=== PATIENT | female | born 1945 | race African-American/Black ===

== ENCOUNTER 2020-04-11 11:56 | Emergency (ER) | payer MEDICARE ==
[~2020-04-11] VITALS: Ht 160 cm; Wt 62.1 kg
--- OUTSIDE RECORDS SUMMARY | 2020-04-11 11:58 | XMS REPORT | Clinical Summary ---
Author Author [facility] Address Unknown Phone Unavailable Care Team Providers Care Project Archivist Name Role Phone Asked, No Pcp PCP Unavailable Allergies Comments Active Allergy Reactions Severity Noted Date Codeine 10/04/2018 Medications End Date Status Medication Sig Dispensed Refills Start Date Active isosorbide mononitrate Take 60 mg by 0 (IMDUR) 60 MG 24 hr mouth daily. tablet Active omeprazole (PriLOSEC) 40 Take 40 mg by 0 MG capsule mouth daily. Active metoprolol tartrate Take 50 mg by 0 (LOPRESSOR) 50 mg tablet mouth 2 (two) times a day. 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 Last Filed Vital Signs Not on file Plan of Treatment Health Maintenance Due Date Last Done Comments DIABETIC RETINAL EYE EXAM 1943 DIABETIC FOOT EXAM 1953 URINE MICROALBUMIN 1953 COLONOSCOPY SCREENING 1993 SHINGLES VACCINES (#1) 1993 65+ PNEUMOCOCCAL VACCINE 2008 (1 of 2 - PCV13) INFLUENZA VACCINE 07/01/2020 Implants Device Identifier Shelf Expiration Date Model / Serial / L ot Implanted Type Area Manufactur er [id number] / / Stent System 3.5 X 30mm Resolute Coronary N/A: N/A MEDTRONIC Pj Rx Coronary - [id number] Stents [place] - Implanted: 10/27/2018 at [facility] (Quantity not on file) RYHTYM MGMT [id number] / / Stent Coronary Syst Synergy (Mr) Coronary N/A: N/A BSC 3.50mm X 28mm - [id number] Stents INTERVENTI Implanted: 10/27/2018 at [facility] (Quantity not on file) CARDIOLOGY 06/02/2020 [id number] / / [id number] Stent Coronary Syst Synergy (Mr) Coronary N/A: N/A BSC 3.00mm X 16mm - [id number] Stents INTERVENTI Implanted: 10/27/2018 at [facility] (Quantity not on file) CARDIOLOGY 07/22/2021 [id number] / / [id number] Needle Yueh Centsis 19ga Str 5fr Surgical N/A: N/A COOK 7cm Cath Strl - [id number] Implants; INTERVENTI Implanted: 10/08/2018 at [facility] (Quantity not on file) Extenders; RADIOL OGY Surgical Wires 06/01/2021 [id number] / / [id number] Needle Yueh Centsis 19ga Str 5fr Surgical N/A: N/A COOK 7cm Cath Strl - [id number] Implants; INTERVENTI Implanted: 10/09/2018 at [facility] (Quantity not on file) Extenders; RADIOL OGY Surgical Wires 07/01/2021 [id number] / / [id number] Needle Yueh Centsis 19ga Str 5fr Surgical N/A: N/A COOK 7cm Cath Strl - [id number] Implants; INTERVENTI Implanted: 10/09/2018 at [facility] (Quantity not on file) Extenders; RADIOL OGY Surgical Wires Results Not on fileafter 04/11/2019 Insurance Type Payer Benefit Subscriber ID Effective Phone Address Plan / Dates Group HMO C[employer] CIGNA xxxxxxxxxxx 2018- HEALTHSPRI Present NG O MCR ADV Advance Directives For more information, please contact: [phone] 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
--- OUTSIDE RECORDS SUMMARY | 2020-04-11 11:58 | XMS REPORT ---
Author Author [facility] Organization [facility] Address Unknown Phone Unavailable Care Team Providers Care Displayer Name Role Phone Unavailable Unavailable Payers Payer Name Policy Type Policy Number Effective Date Expiration D ate Problems This patient has no known problems. Allergies, Adverse Reactions, Alerts Allergy Name Allergy Type Status Severity Reaction(s) Onset Date Inacti ve Date Treating Clinician Comments codeine DA Active U 2016-05-17 00:00:00 Medications This patient has no known medications. Encounters Start Date/Time End Date/Time Encounter Type Admission Type [facility] Care Department Encounter ID 2019-12-24 09:27:00 2019-12-24 09:27:00 Outpatient [facility] [id number] 2019-11-08 09:35:00 2019-11-08 09:35:00 Outpatient [facility] [id number] 2019-08-28 15:42:00 2019-08-28 15:42:00 Outpatient [facility] [id number] Results Test Description Test Time Test Comments Text Results Atomic Results Result Comments - XR CONT ENEMA W/WO GABY 2020-01-24 14:19:00 FA X: Juan Singleton MD [phone] [place]: B St: REG FAX: Brigitte Lawler [phone] Name: MYLENE ESPINAL [facility] : 1944 Age/S: 75/F [address] Unit #: [id number] Loc: [place] [address] Phys: Acct: [id number] Dis Date: Status: REG SD PHONE #: [phone] Exam Date: 01/24/2020 1400 FAX #: [phone] Reason: INCOMPLETE COLONOSCOPY EXAMS: CPT CODE: [id number] XR CONT ENEMA W/WO KUB 76850 HISTORY: Incomplete colonoscopy. COMPARISON: None available. Location: [facility]. Double contrast barium enema exam: Parachute Rigger view of the abdomen demonstrating no bowel obstruction. Bowel gas pattern is within normal limits. Following gadolinium contrast administration patient continued to evacuate the barium. After the fourth attempt the study was terminated. The colon is opacified to the level of the splenic flexure. Scattered diverticulosis. No obstructing lesions. IMPRESSION: Incomplete study as patient continued to evacuate the barium and the study was terminated after the fourth a ttempt. Scattered diverticulosis in the portions of the visualized colon to the level of the sigmoid colon. at 1419 Reported and signed by: Jonah Lara M.D. CC: Juan Kumar MD; Uriel Shaver MD Technologist: RT PRAVIN(Felix) Trnscrd Date/Time/By: 01/24/2020 (3131) : By: [email or web address] Orig Print D/T: S: 01/24/2020 (3801) PAGE 1 Signed Report BASIC METABOLIC PANEL 2020-01-24 13:23:00 SODIUM (test code = NA) 153 mmol/L 136-145 POTASSIUM (test code = K) 3.7 mmol/L 3.5-5.1 CHLORIDE (test code = CL) 121.0 mmol/L 98-107 CARBON DIOXIDE (test code = CO2) 25.0 mmol/L 21-32 ANION GAP (test code = GAP) 10.7 10-20 GLUCOSE (test code = GLU) 117 mg/dL 74-106 BLOOD UREA NITROGEN (test code = BUN) 23 mg/dL 7-18 GLOMERULAR FILTRATION RATE (test code = GFR) > 60 mL/min >=6 0 Estimated GFR by using Modified MDRD formula.Chronic kidney disease is defined as either kidney damageor GFR <60 mL/min/1.73 m2 for >3 months. CREATININE (test code = CREAT) 0.90 mg/dL 0.55-1.02 * *Note change in reference range due to change in reagent. BUN/CREATININE RATIO (test code = BUN/CREA) 25.6 10-2 0 CALCIUM (test code = CA) 8.5 mg/dL 8.5-10.1 BASIC METABOLIC [id number] 13:13:00* Test Item Value Reference Range Comments SODIUM (test code = NA) 153 mmol/L 136-145 POTASSIUM (test code = K) 3.7 mmol/L 3.5-5.1 CHLORIDE (test code = CL) 121.0 mmol/L 98-107 CARBON DIOXIDE (test code = CO2) mmol/L 21-32 ANION GAP (test code = GAP) 10-20 GLUCOSE (test code = GLU) mg/dL 74-106 BLOOD UREA NITROGEN (test code = BUN) mg/dL 7-18 GLOMERULAR FILTRATION RATE (test code = GFR) mL/min >=6 0 CREATININE (test code = CREAT) mg/dL 0.55-1.02 BUN/CREATININE RATIO (test code = BUN/CREA) 10-2 0 CALCIUM (test code = CA) mg/dL 8.5-10.1 BASIC METABOLIC [id number] 10:46:00* Test Item Value Reference Range Comments SODIUM (test code = NA) 155 mmol/L 136-145 POTASSIUM (test code = K) 3.9 mmol/L 3.5-5.1 CHLORIDE (test code = CL) 122.0 mmol/L 98-107 CARBON DIOXIDE (test code = CO2) 27.0 mmol/L 21-32 ANION GAP (test code = GAP) 9.9 10-20 GLUCOSE (test code = GLU) 160 mg/dL 74-106 BLOOD UREA NITROGEN (test code = BUN) 24 mg/dL 7-18 GLOMERULAR FILTRATION RATE (test code = GFR) 58 mL/min >=6 0 Estimated GFR by using Modified MDRD formula.Chronic kidney disease is defined as either kidney damageor GFR <60 mL/min/1.73 m2 for >3 months. CREATININE (test code = CREAT) 1.10 mg/dL 0.55-1.02 * *Note change in reference range due to change in reagent. BUN/CREATININE RATIO (test code = BUN/CREA) 21.8 10-2 0 CALCIUM (test code = CA) 9.0 mg/dL 8.5-10.1 [id number] 09:35:00* Test Item Value Reference Range Comments GLUBED (test code = GLUBED) 150 mg/dL 74-106 Perf ormed by certified pocket grinder operator at [facility] BASIC METABOLIC [id number] 08:53:00* Test Item Value Reference Range Comments SODIUM (test code = NA) 153 mmol/L 136-145 POTASSIUM (test code = K) 4.0 mmol/L 3.5-5.1 CHLORIDE (test code = CL) 120.0 mmol/L 98-107 CARBON DIOXIDE (test code = CO2) 27.0 mmol/L 21-32 ANION GAP (test code = GAP) 10.0 10-20 GLUCOSE (test code = GLU) 188 mg/dL 74-106 BLOOD UREA NITROGEN (test code = BUN) 25 mg/dL 7-18 GLOMERULAR FILTRATION RATE (test code = GFR) 53 mL/min >=6 0 Estimated GFR by using Modified MDRD formula.Chronic kidney disease is defined as either kidney damageor GFR <60 mL/min/1.73 m2 for >3 months. CREATININE (test code = CREAT) 1.20 mg/dL 0.55-1.02 * *Note change in reference range due to change in reagent. BUN/CREATININE RATIO (test code = BUN/CREA) 20.8 10-2 0 CALCIUM (test code = CA) 8.9 mg/dL 8.5-10.1 BASIC METABOLIC [id number] 08:23:00* Test Item Value Reference Range Comments SODIUM (test code = NA) 153 mmol/L 136-145 POTASSIUM (test code = K) 4.0 mmol/L 3.5-5.1 CHLORIDE (test code = CL) 120.0 mmol/L 98-107 CARBON DIOXIDE (test code = CO2) mmol/L 21-32 ANION GAP (test code = GAP) 10-20 GLUCOSE (test code = GLU) mg/dL 74-106 BLOOD UREA NITROGEN (test code = BUN) mg/dL 7-18 GLOMERULAR FILTRATION RATE (test code = GFR) mL/min >=6 0 CREATININE (test code = CREAT) mg/dL 0.55-1.02 BUN/CREATININE RATIO (test code = BUN/CREA) 10-2 0 CALCIUM (test code = CA) mg/dL 8.5-10.1 CBC W/AUTO [id number] 07:51:00* Test Item Value Reference Range Comments WHITE BLOOD CELL (test code = WBC) 5.1 K/mm3 4.5-12.5 RED BLOOD CELL (test code = RBC) 3.63 mill/mm3 3.7-5.2 HEMOGLOBIN (test code = HGB) 10.7 gram/dL 11.5-15.5 HEMATOCRIT (test code = HCT) 34.8 % 36.0-46.0 MEAN CELL VOLUME (test code = MCV) 95.9 fL 80-98 MEAN CELL HGB (test code = MCH) 29.5 picogram 27.0-33.0 MEAN CELL HGB CONCETRATION (test code = MCHC) 30.7 gram/dL 33 .0-36.0 RED CELL DISTRIBUTION WIDTH (test code = RDW) 14.1 % 11 .6-16.2 RED CELL DISTRIBUTION WIDTH SD (test code = RDW-SD) 49.8 fL 37.0-51.0 PLATELET COUNT (test code = PLT) 198 K/mm3 150-450 MEAN PLATELET VOLUME (test code = MPV) 12.0 fL 6.7-11.0 NEUTROPHIL % (test code = NT%) 71.9 % 39.0-69.0 IMMATURE GRANULOCYTE % (test code = IG%) 0.4 % 0.0-5.0 LYMPHOCYTE % (test code = LY%) 17.3 % 25.0-55.0 MONOCYTE % (test code = MO%) 9.6 % 0.0-10.0 EOSINOPHIL % (test code = EO%) 0.6 % 0.0-5.0 BASOPHIL % (test code = BA%) 0.2 % 0.0-1.0 NUCLEATED RBC % (test code = NRBC%) 0.0 % 0-0 NEUTROPHIL # (test code = NT#) 3.67 K/mm3 1.8-7.7 IMMATURE GRANULOCYTE # (test code = IG#) 0.02 x10 3/uL 0-0.03 LYMPHOCYTE # (test code = LY#) 0.88 K/mm3 1.0-5.0 MONOCYTE # (test code = MO#) 0.49 K/mm3 0-0.8 EOSINOPHIL # (test code = EO#) 0.03 K/mm3 0.0-0.5 BASOPHIL # (test code = BA#) 0.01 K/mm3 0.0-0.2 NUCLEATED RBC # (test code = NRBC#) 0.00 K/mm3 0.0-0.1 MANUAL DIFF REQUIRED (test code = MDIFF) NO BASIC METABOLIC [id number] 09:43:00* Test Item Value Reference Range Comments SODIUM (test code = NA) 147 mmol/L 136-145 POTASSIUM (test code = K) 3.5 mmol/L 3.5-5.1 CHLORIDE (test code = CL) 113.0 mmol/L 98-107 CARBON DIOXIDE (test code = CO2) 28.0 mmol/L 21-32 ANION GAP (test code = GAP) 9.5 10-20 GLUCOSE (test code = GLU) 98 mg/dL 74-106 BLOOD UREA NITROGEN (test code = BUN) 23 mg/dL 7-18 GLOMERULAR FILTRATION RATE (test code = GFR) 59 mL/min >=6 0 Estimated GFR by using Modified MDRD formula.Chronic kidney disease is defined as either kidney damageor GFR <60 mL/min/1.73 m2 for >3 months. CREATININE (test code = CREAT) 1.10 mg/dL 0.55-1.02 * *Note change in reference range due to change in reagent. BUN/CREATININE RATIO (test code = BUN/CREA) 21.5 10-2 0 CALCIUM (test code = CA) 8.6 mg/dL 8.5-10.1 [id number] 09:32:00* Test Item Value Reference Range Comments GLUBED (test code = GLUBED) 83 mg/dL 74-106 Perf ormed by certified pocket grinder operator at [facility] BASIC METABOLIC [id number] 09:28:00* Test Item Value Reference Range Comments SODIUM (test code = NA) 147 mmol/L 136-145 POTASSIUM (test code = K) 3.5 mmol/L 3.5-5.1 CHLORIDE (test code = CL) 113.0 mmol/L 98-107 CARBON DIOXIDE (test code = CO2) mmol/L 21-32 ANION GAP (test code = GAP) 10-20 GLUCOSE (test code = GLU) mg/dL 74-106 BLOOD UREA NITROGEN (test code = BUN) mg/dL 7-18 GLOMERULAR FILTRATION RATE (test code = GFR) mL/min >=6 0 CREATININE (test code = CREAT) mg/dL 0.55-1.02 BUN/CREATININE RATIO (test code = BUN/CREA) 10-2 0 CALCIUM (test code = CA) mg/dL 8.5-10.1 CBC W/AUTO [id number] 08:44:00* Test Item Value Reference Range Comments WHITE BLOOD CELL (test code = WBC) 4.8 K/mm3 4.5-12.5 RED BLOOD CELL (test code = RBC) 3.29 mill/mm3 3.7-5.2 HEMOGLOBIN (test code = HGB) 9.7 gram/dL 11.5-15.5 HEMATOCRIT (test code = HCT) 30.6 % 36.0-46.0 MEAN CELL VOLUME (test code = MCV) 93.0 fL 80-98 MEAN CELL HGB (test code = MCH) 29.5 picogram 27.0-33.0 MEAN CELL HGB CONCETRATION (test code = MCHC) 31.7 gram/dL 33 .0-36.0 RED CELL DISTRIBUTION WIDTH (test code = RDW) 13.5 % 11 .6-16.2 RED CELL DISTRIBUTION WIDTH SD (test code = RDW-SD) 46.8 fL 37.0-51.0 PLATELET COUNT (test code = PLT) 171 K/mm3 150-450 MEAN PLATELET VOLUME (test code = MPV) 12.3 fL 6.7-11.0 NEUTROPHIL % (test code = NT%) 57.6 % 39.0-69.0 IMMATURE GRANULOCYTE % (test code = IG%) 0.2 % 0.0-5.0 LYMPHOCYTE % (test code = LY%) 28.9 % 25.0-55.0 MONOCYTE % (test code = MO%) 12.1 % 0.0-10.0 EOSINOPHIL % (test code = EO%) 0.8 % 0.0-5.0 BASOPHIL % (test code = BA%) 0.4 % 0.0-1.0 NUCLEATED RBC % (test code = NRBC%) 0.0 % 0-0 NEUTROPHIL # (test code = NT#) 2.77 K/mm3 1.8-7.7 IMMATURE GRANULOCYTE # (test code = IG#) 0.01 x10 3/uL 0-0.03 LYMPHOCYTE # (test code = LY#) 1.39 K/mm3 1.0-5.0 MONOCYTE # (test code = MO#) 0.58 K/mm3 0-0.8 EOSINOPHIL # (test code = EO#) 0.04 K/mm3 0.0-0.5 BASOPHIL # (test code = BA#) 0.02 K/mm3 0.0-0.2 NUCLEATED RBC # (test code = NRBC#) 0.00 K/mm3 0.0-0.1 - MRI ABDOMEN W/O [id number] 12:31:00 FAX: Juan Singleton MD [phone] [place]: St: [facility] FAX: Brigitte Lawler [phone] Name: MYLENE ESPINAL [facility] : 1944 Age/S: 74/F [address] [facility] Unit #: [id number] Loc: [place] [address] Phys: Juan Kumar MD Acct: [id number] Dis Date: Status: REG CLI PHONE #: [phone] Exam Date: 07/02/2019 1133 FAX #: [phone] Reason: R11.2,R83.4 EXAMS: CPT CODE: [id number] MRI ABDOMEN W/O CONT 16543 HISTORY: R 11.2/R 83.4. COMPARISON: None available. MRCP examination: 3-D images. CBD is dilated to 1.1 cm with abrupt termination in the distal CBD suggestive of obstruction likely from stone. ERCP recommended. Gallbladder is not seen. Common hepatic and the right and left hepatic ducts are mildly dilated as well. Pancreatic duct is normal. No ascites is noted. IMPRESSION: Dilated CBD measuring up to 1.1 cm with abrupt termination of the distal CBD proximal to the ampulla suggestive of obstructing stone. Correlate with ERCP for further evaluation. Pancreatic duct is not dilated. at 1231 Reported and signed by: Jonah Lara M.D. CC: Juan Kumar MD; rUiel Brath MD chnologist: Jareth Aguilar(R)(MR) Trnscrd Date/ Time/By: 07/02/2019 (1231) : By: [email or web address] Orig Print D/T: S: 07/02/20 19 (5076) PAGE 1 Signed Report
[2020-04-11] MEDS ORDERED: HYDROCODONE/APAP 7.5MG-325MG 1 EA TAB PO PRN (12:45)
[2020-04-11] MEDS ORDERED: ULTRAM50 MG PO (14:50)
--- NOTE | 2020-04-11 15:02 | Emergency Department Note ---
History of Present Illnes History of Present Illness Chief Complaint: General Medicine Complaints Stated Complaint: HIP PAIN History of Present Illness This is a 74 year old female arrived to the ED with atraumatic left hip pain, h/o ?pinched nerve per pt. Historian: Patient Onset (how long ago): month(s) Radiation: non-radiation Severity: moderate Onset quality: unable to specify Duration (how long): month(s) Progression: unchanged Chronicity: chronic Treatments prior to arrival: none Past Medical/Family History Physician Review I have reviewed the patient's past medical and family history. Any updates have been documented here. Past Medical History Recent Fever: No Clinical Suspicion of Infectio: No New/Unexplained Change in Ment: No Past Medical History: Hypertension, Diabetes, Hyperlipedemia Other Medical History: pinched nerve in left hip Past Surgical History: Cholecysctectomy, Hysterectomy Other Surgery: abd hernia Social History Smoking Cessation: Never Smoker Counseling Performed: No Alcohol Use: None Any Illegal Drug Use: No TB Exposure/Symptoms: No Physically hurt or threatened: No Family History Family history of heart diseas: Yes Other Last Tetanus: utd Any Pre-Existing Lines (PICC,: No Is patient up to date on immun: Yes Last Flu: utd Last Pneumovax: utd Review of Systems Review of Systems Constitutional: no symptoms EENTM: no symptoms Cardiovascular: no symptoms; chest pain Respiratory: no symptoms Gastrointestinal: no symptoms; abdominal pain, constipation, diarrhea Genitourinary: no symptoms Musculoskeletal: no symptoms, back pain, joint pain, muscle pain, muscle stiffness Integumentary: no symptoms Neurological: no symptoms; numbness, paresthesia, weakness Psychological: no symptoms Endocrine: no symptoms Hematological/Lymphatic: no symptoms Review of other systems All other systems reviewed and negative. Physical Exam Related Data Allergies: Coded Allergies: No Known Allergies (Unverified , 04/11/20) Triage Vital Signs Vital Signs Date Time Temp Pulse Resp B/P (MAP) Pulse Ox O2 Delivery O2 Flow Rate FiO2 04/11/20 12:20 97.6 84 16 173/85 96 Physical Exam CONSTITUTIONAL Constitutional: well-developed, well-nourished, cachectic HENT HENT: normocephalic, atraumatic, oropharynx clear/moist, nose normal HENT - Ear: left ext ear normal, right ext ear normal EYES Eyes: PERRL, conjunctivae normal NECK Neck: ROM normal PULMONARY Pulmonary: effort normal, breath sounds normal CARDIOVASCULAR Cardiovascular: regular rhythm, heart sounds normal, capillary refill normal, normal rate GASTROINTESTINAL Abdominal: soft, nontender, bowel sounds normal GENITOURINARY Genitourinary: exam deferred SKIN Skin: warm, dry MUSCULOSKELETAL Musculoskeletal: ROM normal, tenderness NEUROLOGICAL Neurological: alert, oriented x 3, no gross motor or sensory deficits PSYCHOLOGICAL Psychiatric/behavioral: mood/affect normal, judgement normal Results Imaging Y: Yes Impressions No acute fracture, degenerative changes Diagnostics Tests Diagnostic test(s) reviewed: Yes Critical Care Time Subsequent provider I assumed direction of critical care for this patient from another provider of my specialty. Assessment & Plan Assessment & Plan Problems: (1) Back pain (2) Hip sprain Assessment & Plan Atraumatic Hip Pain -CT Hip no acute fracture -reports improvement with pain meds -outpt ortho referral given Depart Disposition: HOME, SELF-CARE Last Vital Signs Date Time Temp Pulse Resp B/P (MAP) Pulse Ox O2 Delivery O2 Flow Rate FiO2 04/11/20 12:54 98.3 85 15 165/98 99 Home Meds Active Scripts Tramadol Hcl (ULTRAM) 50 Mg Tablet, 50 MG PO Q6HR PRN for Mild Pain (1-3) or Fever>100.8, #12 TAB Prov:ALISHA VIRGEN DO 04/11/20 Medications in the ED Acetaminophen/ Hydrocodone Bitart 1 ea ONCE PRN PO MODERATE PAIN (4-6) Last administered on 04/11/20at 13:08; Admin Dose 1 EA; Start 04/11/20 at 12:45; Stop 04/18/20 at 12:44 ALISHA VIRGEN DO April 11, 2020 15:02
--- NOTE | 2020-04-12 09:22 | Diagnostic Imaging Report ---
TECHNIQUE: Computed tomography imaging of the LEFT HIP was performed WITHOUT injected contrast. Dose modulation, iterative reconstruction, and/or weight based adjustment of the mA/kV was utilized to reduce the radiation dose to as low as reasonably achievable. HISTORY: Left hip pain COMPARISON: None available. FINDINGS: No fracture. No lytic or blastic lesion. Mild joint space narrowing of the left hip with osteophytosis. 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 Thickening of the hamstring origin with soft tissue calcifications. Vascular calcifications. No soft tissue mass. Within the pelvis, multiple diverticula without inflammatory change. IMPRESSION: No acute CT finding. 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 Signed by: Dr. Goyo Kirby M.D. on 04/12/2020 9:10 AM
== END 2020-04-11 15:24 | disposition home or self-care (01) ==
LOC: ER 11:56
DX: M25.552 Pain in left hip (principal); S73.102A Unspecified sprain of left hip, initial encounter; R10.2 Pelvic and perineal pain; I10 Essential (primary) hypertension; E11.9 Type 2 diabetes mellitus without complications; E78.5 Hyperlipidemia, unspecified
CPT/HCPCS: 99284

== ENCOUNTER → 2020-04-25 | Emergency (ER) | payer MEDICARE ==
[~2020-04-25] VITALS: Ht 160 cm; Wt 62.1 kg
[~2020-04-25] MED LIST: ULTRAM50 MG PO
--- OUTSIDE RECORDS SUMMARY | 2020-04-25 10:14 | XMS REPORT ---
Author Author [facility] t Organization [facility] t Address [address] [place] [address] Phone Unavailable Care Team Providers Care Heavy Coil Winder Name Role Phone MD URIEL LEOS PCP [phone] Gloria VIRGEN Attphys Unavailable Payers Payer Name Policy Type Policy Number Effective Date Expiration Date S ource Advance Directives Directive Decision Effective Date Termination Date Comments Sour ce Yes N/A [facility] Problems Condition Name Condition Details Condition Category Status Onset Date Resolution Date Last Treatment Date Treating Clinician Comments Source Diabetic ketoacidosis without coma associated with typ e 2 diabetes mellitus Diabetic ketoacidosis without 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 Disease Active 2018-10-04 00:00:00 Michael Colvin Pulmonary edema Pulmonary edema Disease Active 2018-10-04 00:00:00 Michael Colvin Hyperglycemia Hyperglycemia Disease Active 2018-10-04 00:00:00 Michael Colvin Back pain Problem [facility] Sprain of hip Problem [facility] Allergies, Adverse Reactions, Alerts Allergy Name Allergy Type Status Severity Reaction(s) Onset Date Inacti ve Date Treating Clinician Comments Source Codeine Propensity to adverse reactions to drug Active 2018-10-04 00:00:00 Michael Colvin codeine DA Active U 2016-05-17 00:00:00 [facility] Social History Social Habit Start Date Stop Date Quantity Comments Source Sex Assigned At Severo Colvin Alcohol intake 2018-11-10 00:00:00 2018-11-10 00:00:00 Current non-drinker of alcohol (finding) Michael Colvin Smoking Status Start Date Stop Date Source Never smoker Michael barboza Medications Ordered Medication Name Filled Medication Name Start Date Stop Da te Current Medication? Ordering Clinician Indication Dosage Frequency Signature (SIG) Comments Components Source Tramadol Hcl (Ultram) 50 Mg TABLET Tramadol Hcl (Ultram) 50 Mg TABLET 2020-04-11 14:50:00 Yes 50 [facility] isosorbide mononitrate (IMDUR) 60 MG 24 hr tablet 2018-11-02 15:59:19 Yes 60mg QD Take 60 mg by mouth daily. Michael Colvin omeprazole (PriLOSEC) 40 MG capsule 2018-11-02 15:59:19 Yes 40mg QD Take 40 mg by mouth daily. Michael Colvin metoprolol tartrate (LOPRESSOR) 50 mg tablet 2018-11-02 15:59:19 Yes 50mg Q.5D Take 50 mg by mouth 2 (two) times a day. Michael Colvin Vital Signs Vital Name Observation Time Observation Value Comments Source Weight 2020-04-11 12:20:00 137 [lb_av] [facility] BMI (Body Mass Index) 2020-04-11 12:20:00 24.3 kg/m2 [facility] Procedures Procedure Date / Time Performed Performing Clinician [facility] Computed tomography, lower extremity; without contrast material 2020-04-11 00:00:00 [facility] Plan of Care Planned Activity Planned Date Details Comments Source Future Scheduled Test 2020-07-01 00:00:00 INFLUENZA VACCINE [code = INFLUENZA VACCINE] [facility] Scheduled Test 2008 00:00:00 65+ PNEUMOCOCCAL V ACCINE (1 of 2 - PCV13) [code = 65+ PNEUMOCOCCAL VACCINE (1 of 2 - PCV13)] [facility] Scheduled Test 1993 00:00:00 COLONOSCOPY SCREEN ING [code = COLONOSCOPY SCREENING] [facility] Scheduled Test 1993 00:00:00 SHINGLES VACCINES (#1) [code = SHINGLES VACCINES (#1)] [facility] Scheduled Test 1953 00:00:00 DIABETIC FOOT EXAM [code = DIABETIC FOOT EXAM] [facility] Scheduled Test 1953 00:00:00 URINE MICROALBUMIN [code = URINE MICROALBUMIN] [facility] Scheduled Test 1943 00:00:00 DIABETIC RETINAL E YE EXAM [code = DIABETIC RETINAL EYE EXAM] [facility] Goal Patient referral [code = 1786566 ] [facility] Goal Patient referral [code = 9089105 ] [facility] Instructions Osteoarthritis [facility] Instructions Back Pain [facility] Encounters Start Date/Time End Date/Time Encounter Type Admission Type Attendi [facility] Care Department Encounter ID Source 2019-12-24 09:27:00 2019-12-24 09:27:00 Outpatient [facility] [id number] [facility] 2019-11-08 09:35:00 2019-11-08 09:35:00 Outpatient [facility] [id number] [facility] 2019-08-28 15:42:00 2019-08-28 15:42:[address] [facility] [address] [facility] Results Test Description Test Time Test Comments Results Result Comments Source CT HIP LEFT WO 2020-04-12 09:09:00 [facility] [address] [address] Patient Name: MYLENE ESPINAL MR #: [id number] : 1945 Age/Sex: 74/F Req #: [id number] Adm Physician: Ordered by: ALISHA VIRGEN DO Report #: [id number] Location: ER Room/Bed: Procedure: [id number] CT/CT HIP LEFT WO Exam Date: 04/11/20 Exam Time: 1357 REPORT STATUS: Signed TECHNIQUE: Computed tomography imaging of the LEFT HIP was performed WITHOUT injected contrast. Dose modulation, iterative reconstruction, and/or weight based adjustment of the mA/kV was utilized to reduce the radiation dose to as low as reasonably achievable. HISTORY: Left hip pain COMPARISON: None available. FINDINGS: No fracture. No lytic or blastic lesion. Mild joint space narrowing of the left hip with osteophytosis. 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 Thickening of the hamstring origin with soft tissue calcifications. Vascular calcifications. No soft tissue mass. Within the pelvis, multiple diverticula without inflammatory change. IMPRESSION: No acute CT finding. 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 Signed by: Dr. Samuel Corea M.D. on 04/12/2020 9:10 AM Dictated By: SMAUEL COREA MD 9 Transcribed By: KJ on 04/12/20909 COPY TO: ALISHA VIRGEN, DO - XR CONT ENEMA W/WO [facility] 2020-01-24 14:19:00 FA X: Juan Singleton MD [phone] [place]: St: REG FAX: Brigitte Lawler [phone] Name: MYLENE ESPINAL [facility] : 1944 Age/S: 75/F [address] Unit #: [id number] Loc: [place] [address] Phys: Acct: [id number] Dis Date: Status: REG [facility] PHONE #: [phone] Exam Date: 01/24/2020 1400 FAX #: [phone] Reason: INCOMPLETE COLONOSCOPY EXAMS: CPT CODE: [id number] XR CONT ENEMA W/WO KUB 38024 HISTORY: Incomplete colonoscopy. COMPARISON: None available. Location: [facility]. Double contrast barium enema exam: Marketing Services Rep view of the abdomen demonstrating no bowel [...] Kumar MD; Uriel Shaver MD Technologist: RT PRAVIN(R) Trnscrd Date/Time/By: 01/24/2020 (9278) : By: [email or web address] Orig Print D/T: S: 01/24/2020 (8064) PAGE 1 Signed Report BASIC METABOLIC PANEL 2020-01-24 13:23:00 Test Item SODIUM (test code = NA) 153 mmol/L 136-145 H POTASSIUM (test code = K) 3.7 mmol/L 3.5-5.1 N CHLORIDE (test code = CL) 121.0 mmol/L 98-107 H CARBON DIOXIDE (test code = CO2) 25.0 mmol/L 21-32 N ANION GAP (test code = GAP) 10.7 10-20 N GLUCOSE (test code = GLU) 117 mg/dL 74-106 H BLOOD UREA NITROGEN (test code = BUN) 23 mg/dL 7-18 H GLOMERULAR FILTRATION RATE (test code = GFR) > 60 mL/min >=60 Estimated GFR by using Modified MDRD formula.Chronic kidney disease is defined as either kidney damageor GFR <60 mL/min/1.73 m2 for >3 months. CREATININE (test code = CREAT) 0.90 mg/dL 0.55-1.02 N Note change in reference range due to change in reagent. BUN/CREATININE RATIO (test code = BUN/CREA) 25.6 10-20 H CALCIUM (test code = CA) 8.5 mg/dL 8.5-10.1 N BASIC METABOLIC [id number] 13:13:00* Test Item Value Reference Range Interpretation Comments SODIUM (test code = NA) 153 mmol/L 136-145 H POTASSIUM (test code = K) 3.7 mmol/L 3.5-5.1 N CHLORIDE (test code = CL) 121.0 mmol/L 98-107 H CARBON DIOXIDE (test code = CO2) mmol/L 21-32 ANION GAP (test code = GAP) 10-20 GLUCOSE (test code = GLU) mg/dL 74-106 BLOOD UREA NITROGEN (test code = BUN) mg/dL 7-18 GLOMERULAR FILTRATION RATE (test code = GFR) mL/min >=60 CREATININE (test code = CREAT) mg/dL 0.55-1.02 BUN/CREATININE RATIO (test code = BUN/CREA) 10-20 CALCIUM (test code = CA) mg/dL 8.5-10.1 BASIC METABOLIC [id number] 10:46:00* Test Item Value Reference Range Interpretation Comments SODIUM (test code = NA) 155 mmol/L 136-145 H POTASSIUM (test code = K) 3.9 mmol/L 3.5-5.1 N CHLORIDE (test code = CL) 122.0 mmol/L 98-107 H CARBON DIOXIDE (test code = CO2) 27.0 mmol/L 21-32 N ANION GAP (test code = GAP) 9.9 10-20 L GLUCOSE (test code = GLU) 160 mg/dL 74-106 H BLOOD UREA NITROGEN (test code = BUN) 24 mg/dL 7-18 H GLOMERULAR FILTRATION RATE (test code = GFR) 58 mL/min >=60 Estimated GFR by using Modified MDRD formula.Chronic kidney disease is defined as either kidney damageor GFR <60 mL/min/1.73 m2 for >3 months. CREATININE (test code = CREAT) 1.10 mg/dL 0.55-1.02 H Note change in reference range due to change in reagent. BUN/CREATININE RATIO (test code = BUN/CREA) 21.8 10-20 H CALCIUM (test code = CA) 9.0 mg/dL 8.5-10.1 N [id number] 09:35:00* Test Item Value Reference Range Interpretation Comments GLUBED (test code = GLUBED) 150 mg/dL 74-106 H Performed by certified landfill gas collection operator at [facility] BASIC METABOLIC [id number] 08:53:00* Test Item Value Reference Range Interpretation Comments SODIUM (test code = NA) 153 mmol/L 136-145 H POTASSIUM (test code = K) 4.0 mmol/L 3.5-5.1 N CHLORIDE (test code = CL) 120.0 mmol/L 98-107 H CARBON DIOXIDE (test code = CO2) 27.0 mmol/L 21-32 N ANION GAP (test code = GAP) 10.0 10-20 N GLUCOSE (test code = GLU) 188 mg/dL 74-106 H BLOOD UREA NITROGEN (test code = BUN) 25 mg/dL 7-18 H GLOMERULAR FILTRATION RATE (test code = GFR) 53 mL/min >=60 Estimated GFR by using Modified MDRD formula.Chronic kidney disease is defined as either kidney damageor GFR <60 mL/min/1.73 m2 for >3 months. CREATININE (test code = CREAT) 1.20 mg/dL 0.55-1.02 H Note change in reference range due to change in reagent. BUN/CREATININE RATIO (test code = BUN/CREA) 20.8 10-20 H CALCIUM (test code = CA) 8.9 mg/dL 8.5-10.1 N BASIC METABOLIC [id number] 08:23:00* Test Item Value Reference Range Interpretation Comments SODIUM (test code = NA) 153 mmol/L 136-145 H POTASSIUM (test code = K) 4.0 mmol/L 3.5-5.1 N CHLORIDE (test code = CL) 120.0 mmol/L 98-107 H CARBON DIOXIDE (test code = CO2) mmol/L 21-32 ANION GAP (test code = GAP) 10-20 GLUCOSE (test code = GLU) mg/dL 74-106 BLOOD UREA NITROGEN (test code = BUN) mg/dL 7-18 GLOMERULAR FILTRATION RATE (test code = GFR) mL/min >=60 CREATININE (test code = CREAT) mg/dL 0.55-1.02 BUN/CREATININE RATIO (test code = BUN/CREA) 10-20 CALCIUM (test code = CA) mg/dL 8.5-10.1 CBC W/AUTO [id number] 07:51:00* Test Item Value Reference Range Interpretation Comments WHITE BLOOD CELL (test code = WBC) 5.1 K/mm3 4.5-12.5 N RED BLOOD CELL (test code = RBC) 3.63 mill/mm3 3.7-5.2 L HEMOGLOBIN (test code = HGB) 10.7 gram/dL 11.5-15.5 L HEMATOCRIT (test code = HCT) 34.8 % 36.0-46.0 L MEAN CELL VOLUME (test code = MCV) 95.9 fL 80-98 N MEAN CELL HGB (test code = MCH) 29.5 picogram 27.0-33.0 N MEAN CELL HGB CONCETRATION (test code = MCHC) 30.7 gram/dL 33.0-36. 0 L RED CELL DISTRIBUTION WIDTH (test code = RDW) 14.1 % 11.6-16. 2 N RED CELL DISTRIBUTION WIDTH SD (test code = RDW-SD) 49.8 fL 37 .0-51.0 N PLATELET COUNT (test code = PLT) 198 K/mm3 150-450 N MEAN PLATELET VOLUME (test code = MPV) 12.0 fL 6.7-11.0 H NEUTROPHIL % (test code = NT%) 71.9 % 39.0-69.0 H IMMATURE GRANULOCYTE % (test code = IG%) 0.4 % 0.0-5.0 N LYMPHOCYTE % (test code = LY%) 17.3 % 25.0-55.0 L MONOCYTE % (test code = MO%) 9.6 % 0.0-10.0 N EOSINOPHIL % (test code = EO%) 0.6 % 0.0-5.0 N BASOPHIL % (test code = BA%) 0.2 % 0.0-1.0 N NUCLEATED RBC % (test code = NRBC%) 0.0 % 0-0 N NEUTROPHIL # (test code = NT#) 3.67 K/mm3 1.8-7.7 N IMMATURE GRANULOCYTE # (test code = IG#) 0.02 x10 3/uL 0-0.03 N LYMPHOCYTE # (test code = LY#) 0.88 K/mm3 1.0-5.0 L MONOCYTE # (test code = MO#) 0.49 K/mm3 0-0.8 N EOSINOPHIL # (test code = EO#) 0.03 K/mm3 0.0-0.5 N BASOPHIL # (test code = BA#) 0.01 K/mm3 0.0-0.2 N NUCLEATED RBC # (test code = NRBC#) 0.00 K/mm3 0.0-0.1 N MANUAL DIFF REQUIRED (test code = MDIFF) NO BASIC METABOLIC [id number] 09:43:00* Test Item Value Reference Range Interpretation Comments SODIUM (test code = NA) 147 mmol/L 136-145 H POTASSIUM (test code = K) 3.5 mmol/L 3.5-5.1 N CHLORIDE (test code = CL) 113.0 mmol/L 98-107 H CARBON DIOXIDE (test code = CO2) 28.0 mmol/L 21-32 N ANION GAP (test code = GAP) 9.5 10-20 L GLUCOSE (test code = GLU) 98 mg/dL 74-106 N BLOOD UREA NITROGEN (test code = BUN) 23 mg/dL 7-18 H GLOMERULAR FILTRATION RATE (test code = GFR) 59 mL/min >=60 Estimated GFR by using Modified MDRD formula.Chronic kidney disease is defined as either kidney damageor GFR <60 mL/min/1.73 m2 for >3 months. CREATININE (test code = CREAT) 1.10 mg/dL 0.55-1.02 H Note change in reference range due to change in reagent. BUN/CREATININE RATIO (test code = BUN/CREA) 21.5 10-20 H CALCIUM (test code = CA) 8.6 mg/dL 8.5-10.1 N [id number] 09:32:00* Test Item Value Reference Range Interpretation Comments GLUBED (test code = GLUBED) 83 mg/dL 74-106 N Performed by certified landfill gas collection operator at [facility] BASIC METABOLIC [id number] 09:28:00* Test Item Value Reference Range Interpretation Comments SODIUM (test code = NA) 147 mmol/L 136-145 H POTASSIUM (test code = K) 3.5 mmol/L 3.5-5.1 N CHLORIDE (test code = CL) 113.0 mmol/L 98-107 H CARBON DIOXIDE (test code = CO2) mmol/L 21-32 ANION GAP (test code = GAP) 10-20 GLUCOSE (test code = GLU) mg/dL 74-106 BLOOD UREA NITROGEN (test code = BUN) mg/dL 7-18 GLOMERULAR FILTRATION RATE (test code = GFR) mL/min >=60 CREATININE (test code = CREAT) mg/dL 0.55-1.02 BUN/CREATININE RATIO (test code = BUN/CREA) 10-20 CALCIUM (test code = CA) mg/dL 8.5-10.1 CBC W/AUTO [id number] 08:44:00* Test Item Value Reference Range Interpretation Comments WHITE BLOOD CELL (test code = WBC) 4.8 K/mm3 4.5-12.5 N RED BLOOD CELL (test code = RBC) 3.29 mill/mm3 3.7-5.2 L HEMOGLOBIN (test code = HGB) 9.7 gram/dL 11.5-15.5 L HEMATOCRIT (test code = HCT) 30.6 % 36.0-46.0 L MEAN CELL VOLUME (test code = MCV) 93.0 fL 80-98 N MEAN CELL HGB (test code = MCH) 29.5 picogram 27.0-33.0 N MEAN CELL HGB CONCETRATION (test code = MCHC) 31.7 gram/dL 33.0-36. 0 L RED CELL DISTRIBUTION WIDTH (test code = RDW) 13.5 % 11.6-16. 2 N RED CELL DISTRIBUTION WIDTH SD (test code = RDW-SD) 46.8 fL 37 .0-51.0 N PLATELET COUNT (test code = PLT) 171 K/mm3 150-450 N MEAN PLATELET VOLUME (test code = MPV) 12.3 fL 6.7-11.0 H NEUTROPHIL % (test code = NT%) 57.6 % 39.0-69.0 N IMMATURE GRANULOCYTE % (test code = IG%) 0.2 % 0.0-5.0 N LYMPHOCYTE % (test code = LY%) 28.9 % 25.0-55.0 N MONOCYTE % (test code = MO%) 12.1 % 0.0-10.0 H EOSINOPHIL % (test code = EO%) 0.8 % 0.0-5.0 N BASOPHIL % (test code = BA%) 0.4 % 0.0-1.0 N NUCLEATED RBC % (test code = NRBC%) 0.0 % 0-0 N NEUTROPHIL # (test code = NT#) 2.77 K/mm3 1.8-7.7 N IMMATURE GRANULOCYTE # (test code = IG#) 0.01 x10 3/uL 0-0.03 N LYMPHOCYTE # (test code = LY#) 1.39 K/mm3 1.0-5.0 N MONOCYTE # (test code = MO#) 0.58 K/mm3 0-0.8 N EOSINOPHIL # (test code = EO#) 0.04 K/mm3 0.0-0.5 N BASOPHIL # (test code = BA#) 0.02 K/mm3 0.0-0.2 N NUCLEATED RBC # (test code = NRBC#) 0.00 K/mm3 0.0-0.1 N - MRI ABDOMEN W/O [id number] 12:31:00 FAX: Juan Singleton MD [phone] [place]: St: REG FAX: Brigitte Lawler [phone] Name: MYLENE ESPINAL [facility] : 1944 Age/S: 74/F [address] [facility] Unit #: [id number] Loc: [place] [address] Phys: Juan Kumar MD Acct: [id number] Dis Date: Status: REG CLI PHONE #: [phone] Exam Date: 07/02/2019 1133 FAX #: [phone] Reason: R11.2,R83.4 EXAMS: CPT CODE: [id number] MRI ABDOMEN W/O CONT [id number] HISTORY: R 11.2/R 83.4. COMPARISON: None available. [...] Lara M.D. CC: Juan Kumar MD; Uriel Leos MD chnologist: Jareth Aguilar(R)(MR) Trnscrd Date/ Time/By: 07/02/2019 (1231) : By: [email or web address] Orig Print D/T: S: 07/02/20 19 (5384) PAGE 1 Signed Report
--- OUTSIDE RECORDS SUMMARY | 2020-04-25 10:14 | XMS REPORT | Clinical Summary ---
Author Author [facility] Address Unknown Phone Unavailable Care Team Providers Care Communication Consultant Name Role Phone Asked, No Pcp PCP [...] L ot Implanted Type Area Manufactur er [id number] / / Stent System 3.5 X 30mm Resolute Coronary N/A: N/A [employer] Pj Rx Coronary - [id number] Stents [place] - Implanted: 10/27/2018 at [facility] (Quantity not on file) RYHTYM MGMT [id number] / / Stent Coronary Syst Synergy (Mr) Coronary N/A: N/A BSC 3.50mm X 28mm - [id number] Stents INTERVENTI Implanted: 10/27/2018 at [facility] (Quantity not on file) CARDIOLOGY 06/02/2020 [id number] / / [id number] Stent Coronary Syst Synergy (Mr) Coronary N/A: N/A BSC 3.00mm X 16mm - [id number] Stents INTERVENTI Implanted: 10/27/2018 at [facility] (Quantity not on file) CARDIOLOGY 07/22/2021 [id number] / / [id number] Needle Yueh Centsis 19ga Str 5fr Surgical N/A: N/A COOK 7cm Cath Strl - [id number] Implants; INTERVENTI Implanted: 10/08/2018 [facility] (Quantity not on file) Extenders; RADIOL OGY Surgical Wires 06/01/2021 [id number] / / [id number] Needle Yueh Centsis 19ga Str 5fr Surgical N/A: N/A COOK 7cm Cath Strl - [id number] Implants; INTERVENTI Implanted: 10/09/2018 at [facility] (Quantity not on file) Extenders; RADIOL OGY Surgical Wires 07/01/2021 [id number] / / [id number] Needle Yueh Centsis 19ga Str 5fr Surgical N/A: N/A COOK 7cm Cath Strl - [id number] Implants; INTERVENTI Implanted: 10/09/2018 at [facility] (Quantity not on file) Extenders; RADIOL OGY Surgical Wires Results Not on fileafter 04/25/2019 Insurance Type Payer Benefit Subscriber ID Effective Phone Address Plan / Dates Group HMO [employer] CIGNA xxxxxxxxxxx 2018- [employer] Present NG O MCR ADV Advance Directives For more information, please contact: [phone] 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
== END | disposition left against medical advice (07) ==
LOC: ER 10:11
DX: M25.552 Pain in left hip (principal)